=== PATIENT | female | born 1985 ===

== ENCOUNTER 2021-09-04 16:37 | Emergency (ER) | payer SELFPAY ==
[~2021-09-04] VITALS: Ht 149.9 cm; Wt 36.0 kg
[2021-09-04 17:08] VITALS: BP 126/72
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
[2021-09-04 18:07] LABS: BARBITURATES NEG (NEG); BENZODIAZEPINES NEG (NEG); CANNABINOIDS NEG (NEG); COCAINE NEG (NEG); METHADONE NEG (NEG); OPIATES NEG (NEG); PHENCYCLIDINE NEG (NEG)
[2021-09-04 18:08] LABS: AMPHETAMINE/METHAMPHETAMINE POS (NEG)
[2021-09-04] MEDS ORDERED: methylPREDNISolone ACETATE 40 MG/ML VIAL. ONE (18:56)
== END 2021-09-04 18:26 | disposition left against medical advice (07) ==
LOC: ER 16:37
DX: S80.211A Abrasion, right knee, initial encounter (principal); M25.571 Pain in right ankle and joints of right foot; R60.0 Localized edema; Z88.8 Allergy status to other drugs, medicaments and biological substances; V83.9XXA Unspecified occupant of special industrial vehicle injured in nontraffic accident, initial encounter; Y93.89 Activity, other specified; Y92.89 Other specified places as the place of occurrence of the external cause; Y99.8 Other external cause status
CPT/HCPCS: 36415; 80307; 81025; 99283